=== PATIENT | male | born 1980 | race Caucasian/White ===

== ENCOUNTER 2018-04-17 19:04 | Emergency (ER) | payer SELFPAY ==
[2018-04-17 19:30] VITALS: Ht 180.3 cm
[2018-04-17 20:43] VITALS: BP 124/94
== END 2018-04-17 20:43 | disposition home or self-care (01) ==
LOC: ED 19:04
DX: S16.1XXA Strain of muscle, fascia and tendon at neck level, initial encounter (principal); F17.210 Nicotine dependence, cigarettes, uncomplicated; X50.0XXA Overexertion from strenuous movement or load, initial encounter; Y93.89 Activity, other specified; Y92.89 Other specified places as the place of occurrence of the external cause; Y99.0 Civilian activity done for income or pay
CPT/HCPCS: J1885